=== PATIENT | male | born 1985 | race Caucasian/White ===

== ENCOUNTER 2022-04-10 08:31 | Emergency (ER) | payer BC, SELFPAY ==
[2022-04-10 08:57] VITALS: BP 134/93; PULSE 71; RESP 18; TEMP 36.8; O2SAT 100; BMI 25.1
--- NOTE | 2022-04-10 09:23 | ED_ITS ---
HPI - General Adult General Chief complaint: Urogenital-Male Stated complaint: Thinks kidney stones Time Seen by Provider: 04/10/22 08:52 Source: patient Mode of arrival: Ambulatory History of Present Illness HPI narrative: 36-year-old gentleman no significant medical history presents with acute onset left flank pain. At 2:00 a.m. noticed pain took 800 mg of ibuprofen which moderately controlled pain. By 715 in the morning it was dramatically worse any comes to the emergency room for further evaluation. Some with the waves of pain he has sweats and dry heaves. He reports no recent fevers, cough, chills, abdominal pain, dysuria, hematuria, diarrhea, chest pain or palpitations. He does note that in May of last year he did have a kidney stone on the left and was told that there was another 1 in the left kidney based on the CT scan done at that time. States that the pain was nicely controlled and it took 2 and half weeks for the stone itself to pass. Related Data Previous Rx's Medication Instructions Recorded oxycodone-acetaminophen 5 mg-325 1 tab PO Q6H PRN pain #14 tabs 04/10/22 mg tablet tamsulosin 0.4 mg capsule 0.4 mg PO DAILY #30 caps 04/10/22 Allergies Allergy/AdvReac Type Severity Reaction Status Date / Time hydrocodone AdvReac ITCHING Verified 04/10/22 09:04 Review of Systems Review of Systems Narrative: Remainder of complete review of systems is otherwise unremarkable except for that included in the HPI. Patient History Medical History (Updated 04/10/22 @ 14:06 by Ange Ferris MD) Kidney stone Substance Use Type: does not use Exam Initial Vital Signs Initial Vital Signs: Vital Signs Temperature 98.3 F 04/10/22 08:57 Pulse Rate 71 04/10/22 08:57 Respiratory Rate 18 04/10/22 08:57 Blood Pressure 134/93 H 04/10/22 08:57 Pulse Oximetry 100 04/10/22 08:57 Oxygen Delivery Method 04/10/22 08:57 General: Healthy appearing, pacing in the room due to severe left flank pain. Able to give a complete and coherent history. Well-nourished well-developed HEENT: Moist mucous membranes, normal sclera with reactive pupils, Neck: No JVD, supple Respiratory: Lungs are clear to auscultation, no wheezing no rales no rhonchi. Full and symmetrical air movement Cardiac: Regular rate and rhythm no murmurs no bruits Abdomen: Soft, nontender, good bowel tones, left flank pain Skin: Warm and dry, no rashes Neurologic: Grossly neurologically intact with no obvious asymmetries or abnormalities Extremities: No trauma, well perfused Psych: Cooperative, appropriate insight and affect Course Orders Ordered: ED Orders 04/10/22 09:40 Complete Blood Count AUTO DIFF Stat Comprehensive Metabolic Panel Stat 04/10/22 11:54 CT kidney ureter bladder (KUB) Stat Hydromorphone HCl (Hydromorphone 0.5 Mg Inj) 0.5 mg IV Q15MIN PRN PRN Reason: Pain, Last Admin: 04/10/22 10:24 Dose: 0.5 mg Documented By: Admin: 04/10/22 10:14 Dose: 0.5 mg Documented By: Admin: 04/10/22 09:43 Dose: 0.5 mg Documented By: CTS Discontinued Medications Hydromorphone HCl (Hydromorphone 1 Mg Inj) 1 mg IV NOW ONE Stop: 04/10/22 10:27 Last Admin: 04/10/22 10:47 Dose: 1 mg Documented By: CTS Sodium Chloride (Normal Saline 0.9%) 1,000 mls @ 1,000 mls/hr IV BOLUS ONE Stop: 04/10/22 10:19 Last Infusion: 04/10/22 10:40 Dose: 0 mls/hr Documented By: Admin: 04/10/22 09:42 Dose: 1,000 mls/hr Documented By: CTS Ketorolac Tromethamine (Ketorolac 30 Mg/Ml Vial) 15 mg IV NOW ONE Stop: 04/10/22 09:21 Last Admin: 04/10/22 09:43 Dose: 15 mg Documented By: CTS Ondansetron HCl (Ondansetron 4 Mg/2 Ml Inj) 4 mg IV NOW ONE Stop: 04/10/22 09:21 Last Admin: 04/10/22 09:43 Dose: 4 mg Documented By: CTS Oxycodone/Acetaminophen (Oxycodone/Acetaminophen 5/325 Tablet) 1 tab PO NOW ONE Stop: 04/10/22 12:51 Last Admin: 04/10/22 13:03 Dose: 1 tab Documented By: AT Tamsulosin HCl (Tamsulosin 0.4 Mg Capsule) 0.4 mg PO NOW ONE Stop: 04/10/22 10:27 Last Admin: 04/10/22 10:47 Dose: 0.4 mg Documented By: CTS Vital Signs Vital signs: Vital Signs - 8 hr 04/10/22 08:57 04/10/22 11:48 Temperature 98.3 F Pulse Rate 71 77 Respiratory Rate 18 18 Blood Pressure 134/93 H 129/73 Pulse Oximetry 100 99 Oxygen Delivery Method Room Air Room Air Medical Decision Making Lab Data Result diagrams: 04/10/22 09:40 04/10/22 09:40 Labs: Lab Results 04/10/22 04/10/22 Range/Units 09:40 09:40 WBC 5.1 (4.5-11.0) X10^3/uL RBC 4.93 (4.5-5.9) X10^6/uL Hgb 15.0 (13.5-17.5) g/dL Hct 43.9 (41-53) % MCV 89.0 (80-100) fL MCH 30.4 (26-34) PG MCHC 34.2 (30-36) % RDW 13.4 (11.6-14.8) % Plt Count 238 (150-400) X10^3/uL Neut % (Auto) 72.1 (50-75) % Lymph % (Auto) 13.4 L (25-40) % [place] % (Auto) 10.7 (3-14) % Eos % (Auto) 3.1 (2-4) % Baso % (Auto) 0.7 (0-2) % Neut # (Auto) 3700 (0655-7137) /uL Lymph # (Auto) 700 L (7273-6982) /uL [place] # (Auto) 600 (0-900) /uL Eos # (Auto) 200 (0-450) /uL Baso # (Auto) 0 (0-100) /uL Sodium 140 (137-145) mmol/L Potassium 4.1 (3.4-5.1) mmol/L Chloride 104 (98-107) mmol/L Carbon Dioxide 25 (22-32) mmol/L BUN 12 (9-20) mg/dL Creatinine 0.98 (0.66-1.25) mg/dL Estimated GFR > 60 (>60) mL/min BUN/Creatinine Ratio 12.2 (6-22) Glucose 119 H (70-100) mg/dL Calcium 9.2 (8.4-10.2) mg/dL Total Bilirubin 0.8 (0.2-1.3) mg/dL AST 49 (17-59) IU/L ALT 40 (<50) IU/L Alkaline Phosphatase 94 (38-126) U/L Total Protein 8.2 (6.3-8.2) g/dL Albumin 4.9 (3.5-5.0) g/dL Globulin 3.3 (1.7-4.1) g/dL Albumin/Globulin Ratio 1.5 (1.0-2.8) Urine Dip Bedside Urine Glucose Negative Bedside Urine Bilirubin - Negative Bedside Urine Ketone +/- 5 Urine Specific [place] 1.015 Bedside Urine Occult Blood +++ Bedside Urine pH 7.0 Bedside Urine Protein + 30 Bedside Urine Urobilinogen - Negative Bedside Urine Nitrite - Negative Bedside Urine Leukocytes - Negative Esterase Point of care testing: Urine Dip Bedside Urine Glucose Negative Bedside Urine Bilirubin - Negative Bedside Urine Ketone +/- 5 Urine Specific [place] 1.015 Bedside Urine Occult Blood +++ Bedside Urine pH 7.0 Bedside Urine Protein + 30 Bedside Urine Urobilinogen - Negative Bedside Urine Nitrite - Negative Bedside Urine Leukocytes - Negative Esterase Imaging Data CT scan - abdomen/pelvis: Radiologist's Impression: FINDINGS:? Image quality:? Excellent.? ? Lung bases:? Unremarkable.? ? Heart:? No significant findings. ? URINARY: Right Kidney: ? No stones or hydronephrosis.? Right Ureter:? No hydroureter.? No ureteral stone.? ? Left Kidney/ureter:? There are a few tiny punctate nephroliths identified in left kidney measuring up to 3 mm in size.? Incompletely characterized 1.3 cm hypodensity in the posterior left kidney measures near fluid attenuation and likely represents a renal cyst. ?No significant perinephric stranding.? There is minimal left hydroureteronephrosis secondary to a 3 mm distal left ureteral stone visualized at the level of the left ureterovesicular junction.? No periureteral stranding seen.? Bladder:? Normal wall thickness. No stones. ? ? ? ABDOMEN: Liver:? Unremarkable.? ? Gallbladder:? Unremarkable.? ? Biliary ducts:? Unremarkable.? ? Pancreas:? Unremarkable.? ? Spleen:? Unremarkable.? ? Adrenal Glands:? Unremarkable.? ? ? Stomach and Bowel:? Stomach, small bowel loops, and colon are unremarkable.? Normal appendix Peritoneum:? No abnormal intraperitoneal fluid.? No free air.? ? Ventral Wall: ? No hernia.? Abdominal Nodes:? No enlarged retroperitoneal or mesenteric lymph nodes.? Vessels:? Aorta and inferior vena cava are normal in size.? ? PELVIS: Pelvic Organs:? Unremarkable.? ? Pelvic Nodes: Unremarkable. Miscellaneous: No inguinal hernias are seen. ? ? ? Bones:? Unremarkable. ? IMPRESSION:? ? 1. Small punctate left nephroliths measuring up to 3 mm in size with a mildly obstructing 3 mm distal left ureteral stone visualized at the left ureterovesicular junction.? There is minimal left-sided hydroureteronephrosis.? No significant periureteral or perinephric stranding. ? 2. Normal appearance of the appendix.? Dictated by: Jayson Mcclain M.D. on 04/10/2022 at 12:54? ?? MDM Narrative Medical decision making narrative: 36-year-old gentleman with prior history of left-sided kidney stone. Acute pain started in the middle of the night dramatically worse this morning. I tried to avoid additional imaging by requesting prior studies to make sure that there were no significantly large stones to be concerned with however was unable to secure prior imaging. CT scan today shows a 3 mm stone at the ureterovesical junction with mild hydronephrosis. His pain has finally been controlled and he has successfully transitioned to oral medications. He has been given a dose of tamsulosin and will give him prescriptions for both tamsulosin and Percocet. With his last own he states that he had pain only for the 1st couple of days but it did take 2 and half weeks for the stone to pass. Reviewed with him expectations, when to stop the tamsulosin and questions are answered. He is safe for home discharge Discharge Plan Departure Patient Disposition: Home Clinical Impression: Kidney stone on left side Instructions: DI for Kidney Stones Activity Restrictions/Additional Instructions: Thank you for coming in today You do have a 3 mm stone on the left side that is almost ready to drop into your bladder. Using 400 mg of ibuprofen (2 [id number] pills) and 1 Tylenol every 6 hours can be very helpful in controlling pain. For severe pain use 400 mg of ibuprofen and 1 Percocet. Narcotics such as Percocet can cause constipation. Make sure you add a stool softener to prevent this. You may also want to buy some [id number] Benadryl as you have had itching issues with narcotics previously. Please take tamsulosin daily until you pass this stone. It is to help the stone pass more easily. If you find that you are getting worse or develop any new symptoms, please feel free to return to the emergency department for further evaluation. Prescriptions: New tamsulosin 0.4 mg capsule 0.4 mg PO DAILY Qty: 30 0RF oxycodone-acetaminophen 5-325 mg tablet 1 tab PO Q6H PRN (Reason: pain) Qty: 14 0RF
[2022-04-10] MEDS: SODIUM CHLORIDE 0.9% 1,000 ML 1000 ML IV (09:42)
[2022-04-10] MEDS: HYDROMORPHONE 0.5 MG INJ IV ×3 (09:43→10:24)
[2022-04-10] MEDS: KETOROLAC 30 MG/ML VIAL 15 MG IV (09:43)
[2022-04-10] MEDS: ONDANSETRON 4 MG/2 ML INJ IV (09:43)
[2022-04-10 09:55] LABS: Add Manual Diff / Slide Review NO; Basophils Absolute Auto 0 /uL (0-100); Basophils Percent Auto 0.7 % (0-2); Eosinophils Absolute Auto 200 /uL (0-450); Eosinophils Percent Auto 3.1 % (2-4); Hematocrit 43.9 % (41-53); Lymphocytes Absolute Auto 700 /uL (1100-4500); Lymphocytes Percent Auto 13.4 % (25-40); Mean Corpuscular HGB Conc 34.2 % (30-36); Mean Corpuscular Hemoglobin 30.4 PG (26-34); Monocytes Absolute Auto 600 /uL (0-900); Monocytes Percent Auto 10.7 % (3-14); Neutrophils Absolute Auto 3700 /uL (1500-7000); Neutrophils Percent Auto 72.1 % (50-75); Platelet Count 238 X10^3/uL (150-400); Red Blood Cell Count 4.93 X10^6/uL (4.5-5.9); Red Cell Distribution Width 13.4 % (11.6-14.8); White Blood Cell Count 5.1 X10^3/uL (4.5-11.0)
[2022-04-10 10:09] LABS: Alanine Aminotransferase 40 IU/L (<50); Albumin 4.9 g/dL (3.5-5.0); Albumin Globulin Ratio 1.5 (1.0-2.8); Alkaline Phosphatase 94 U/L (38-126); Aspartate Aminotransferase 49 IU/L (17-59); BUN Creatinine Ratio 12.2 (6-22); Bilirubin Total 0.8 mg/dL (0.2-1.3); Blood Urea Nitrogen 12 mg/dL (9-20); Calcium 9.2 mg/dL (8.4-10.2); Carbon Dioxide 25 mmol/L (22-32); Chloride 104 mmol/L (98-107); Estimated Glomerular Filt Rate > 60 mL/min (>60); Globulin 3.3 g/dL (1.7-4.1); Glucose 119 mg/dL (70-100); HEMOLYSIS < 15 (0-50); Potassium 4.1 mmol/L (3.4-5.1); Sodium 140 mmol/L (137-145); Total Protein 8.2 g/dL (6.3-8.2)
[2022-04-10] MEDS: TAMSULOSIN 0.4 MG CAPSULE PO (10:47)
[2022-04-10] MEDS: HYDROMORPHONE 1 MG INJ IV (10:47)
[2022-04-10] MEDS: diphenhydrAMINE 50 MG/ML VIAL (10:50)
--- NOTE | 2022-04-10 10:50 | PC.NURSE ---
Pt visiting from [place] and having pain in flank area with history of kidney stones. appears well. nauseated. obtaining records from hospital in [place] where pt had CT done last year.
[2022-04-10 11:48] VITALS: BP 129/73; PULSE 77; RESP 18; O2SAT 99
--- NOTE | 2022-04-10 11:54 | DI.CT.S_ITS ---
PROCEDURE: CT KIDNEY URETER BLADDER (KUB) INDICATIONS: left flank pain, ? stone TECHNIQUE: Axial sections were acquired from the lung bases to the pubic symphysis. Coronal and sagittal reformats were performed. For radiation dose reduction, the following was used: automated exposure control, adjustment of mA and/or kV according to patient size. COMPARISON: None. FINDINGS: Image quality: Excellent. Lung bases: Unremarkable. Heart: No significant findings. URINARY: Right Kidney: No stones or hydronephrosis. Right Ureter: No hydroureter. No ureteral stone. Left Kidney/ureter: There are a few tiny punctate nephroliths identified in left kidney measuring up to 3 mm in size. Incompletely characterized 1.3 cm hypodensity in the posterior left kidney measures near fluid attenuation and likely represents a renal cyst. No significant perinephric stranding. There is minimal left hydroureteronephrosis secondary to a 3 mm distal left ureteral stone visualized at the level of the left ureterovesicular junction. No periureteral stranding seen. Bladder: Normal wall thickness. No stones. ABDOMEN: Liver: Unremarkable. Gallbladder: Unremarkable. Biliary ducts: Unremarkable. Pancreas: Unremarkable. Spleen: Unremarkable. Adrenal Glands: Unremarkable. Stomach and Bowel: Stomach, small bowel loops, and colon are unremarkable. Normal appendix Peritoneum: No abnormal intraperitoneal fluid. No free air. Ventral Wall: No hernia. Abdominal Nodes: No enlarged retroperitoneal or mesenteric lymph nodes. Vessels: Aorta and inferior vena cava are normal in size. PELVIS: Pelvic Organs: Unremarkable. Pelvic Nodes: Unremarkable. Miscellaneous: No inguinal hernias are seen. Bones: Unremarkable. IMPRESSION: 1. Small punctate left nephroliths measuring up to 3 mm in size with a mildly obstructing 3 mm distal left ureteral stone visualized at the left ureterovesicular junction. There is minimal left-sided hydroureteronephrosis. No significant periureteral or perinephric stranding. 2. Normal appearance of the appendix. Dictated by: Jayson Mcclain M.D. on 04/10/2022 at 12:54 Approved by: Jayson Mcclain M.D. on 04/10/2022 at 13:00
[2022-04-10] MEDS: OXYCODONE/ACETAMINOPHEN 5/325 TABLET 1 TAB PO (13:03)
--- NOTE | 2022-04-10 13:30 | PC.NURSE ---
Pt tolerated water and Percocet, denies Nausea.
[2022-04-10 14:29] VITALS: BP 132/77; PULSE 67; RESP 16; O2SAT 99
== END 2022-04-10 14:31 | disposition home or self-care (01) ==
PROVIDERS: Emergency Provider Emergency Medicine
DX: N20.0 Calculus of kidney (principal); Z87.442 Personal history of urinary calculi
CPT/HCPCS: 36415; 74176; 80053; 81003; 85025; 96361; 96374; 96375; 96376; 99284; J1170; J1200; J1885; J2405